=== PATIENT | male | born 1990 | race Caucasian/White ===

== ENCOUNTER → 2019-01-28 | Outpatient (CLI) | payer OTHER ==
[~2019-01-28] MED LIST: ALLERCLEAR10 MG PO; AMBIEN 5 MG TABL5 MG PO; CELEXA 10 MG TA10 M1 PO; CLONAZEPAM 0.50.5 M1 PO; CLONIDINE0.1 PO; DESYREL50 MG PO; HYDROCODONE-AC120 ML PO; RISPERDAL0.5 MG PO
--- NOTE | 2019-01-28 16:30 | 2DMMODE ---
[facility] [place] [address] 2 D/M-MODE ECHOCARDIOGRAM Name: ELY MANN Room #: REG [facility]#: [id number] ������������� Admission: 01/28/19 ������������� Attend Phys: Alexis Russ MD Discharge: ��� ������������� ��� Date of : 89 Date of Service: 01/28/19 1630 �� Report #: [id number] �������� ��������������������������������������������[id number] THIS REPORT FOR: //name// APPROVED REPORT Study performed: 01/28/2019 15:43:59 EXAM: Comprehensive 2D, Doppler, and color-flow Echocardiogram Patient Location: Out-Patient Status: add-on 3:45 BSA: 1.66 HR: 83 bpm Rhythm: NSR Other Information Study Quality: Technically Difficult. Highly uncooperative and combative patient. Limited measurements taken. Indications Mitral regurgitation. 2D Dimensions IVSd: 9.10 (7-11mm) LVOT Diam: 23.29 (18-24mm) LVDd: 38.39 mm PWd: 8.43 (7-11mm) LVDs: 26.33 (25-40mm) Aortic Root: 32.33 mm Aortic Valve AoV Peak Yanick.: 1.84 m/s AO Peak Gr.: 13.61 mmHg Mitral Valve E/A Ratio: 1.3 MV Decel. Time: 111.67 ms MV E Max Yanick.: 1.30 m/s MV A Yanick.: 1.01 m/s MV PHT: 32.39 ms Tricuspid Valve RAP Estimate: 5.00 mmHg Left Ventricle [facility] [address] [place] [address] 2 D/M-MODE ECHOCARDIOGRAM Name: TORYJulissaELY Mario Room #: REG [facility].#: [id number] ������������� Admission: 01/28/19 ������������� Attend Phys: Alexis Russ MD Discharge: ��� ������������� ��� Date of : 89 Date of Service: 01/28/19 1630 �� Report #: [id number] �������� ��������������������������������������������[id number] The left ventricle is normal size. There is normal LV segmental wall motion. There is normal left ventricular wall thickness. The left ventricular systolic function is normal. LVEF is 60%. Right Ventricle The right ventricle is normal size. The right ventricular systolic function is normal. Atria The left atrium size is normal. The right atrium size is normal. Aortic Valve No aortic regurgitation is present. There is no aortic valvular stenosis. Mitral Valve The mitral valve is normal in structure. Trace mitral regurgitation. No evidence of mitral valve stenosis. Tricuspid Valve The tricuspid valve is normal in structure. There is no tricuspid valve regurgitation noted. Unable to assess PA pressure. Pulmonic Valve The pulmonary valve is normal in structure. Trace pulmonic regurgitation. Great Vessels The aortic root is normal in size. IVC is normal in size and collapses >50% with inspiration. Pericardium Small pericardial effusion noted. <Conclusion> The left ventricle is normal size. There is normal left ventricular wall thickness. The left ventricular systolic function is normal. The right ventricle is normal size. The left atrium size is normal. The right atrium size is normal. There is no aortic valvular stenosis. Trace mitral regurgitation. [facility] [address] [place] [address] 2 D/M-MODE ECHOCARDIOGRAM Name: ELY MANN Room #: REG [facility]#: [id number] ������������� Admission: 01/28/19 ������������� Attend Phys: Alexis Russ MD Discharge: ��� ������������� ��� Date of : 89 Date of Service: 01/28/191629 �� Report #: [id number] �������� ��������������������������������������������[id number] There is no tricuspid valve regurgitation noted. Small pericardial effusion noted. ��������������������������������������������� <ELECTRONICALLY SIGNED> ���������������������������������������� By: Alexis Russ MD ��������������������������������������������� 01/28/191629 29 29 Alexis Russ MD /INF
== END ==
LOC: CV 15:24
DX: I34.0 Nonrheumatic mitral (valve) insufficiency (principal)

== ENCOUNTER 2019-02-05 09:37 | Emergency (ER) | payer OTHER ==
[~2019-02-05] VITALS: Ht 139.7 cm; Wt 76.7 kg
[~2019-02-05 09:37] MED LIST changes: -DESYREL50 MG PO; +TRAZODONE HCL100 MG PO
[2019-02-05 09:45] VITALS: BP 118/66
[2019-02-05] MEDS ORDERED: PREDNISONE 20 M20 MG PO (10:15)
== END 2019-02-05 10:26 | disposition home or self-care (01) ==
LOC: ER 09:37
DX: L30.9 Dermatitis, unspecified (principal); M41.9 Scoliosis, unspecified

== ENCOUNTER 2019-09-29 04:59 | Inpatient (IN) | payer OTHER ==
[~2019-09-29] VITALS: Ht 152.4 cm; Wt 83.0 kg
[~2019-09-29 04:59] MED LIST changes: +PREDNISONE 20 M20 MG PO
[2019-09-29 05:00] VITALS: BP 108/58
[2019-09-29] MEDS ORDERED: LEVO-T75 MCG PO (05:05)
[2019-09-29 07:31] LABS: BASOPHILS 0.1 % (0.0-2.0); EOSINOPHILS 0.2 % (0.0-3.0); HEMATOCRIT 47.5 % (42.0-52.0); HEMOGLOBIN 16.1 gm/dL (14.0-18.0); MCH 32.7 pg (26.0-34.0); MCHC 33.9 g/dL (28.0-37.0); MCV 96.5 fL (80.0-100.0); MONOCYTES 8.1 % (1.0-8.0); PLATELET COUNT 292 thou/uL (150-400); POLYS 88.6 % (36.0-66.0); RBC 4.93 mil/uL (4.50-6.00); WBC 15.8 thou/uL (4.0-11.0)
[2019-09-29 07:44] LABS: CALCIUM 9.3 mg/dL (8.5-10.1); CREATININE 1.1 mg/dL (0.7-1.3); POTASSIUM 4.2 mmol/L (3.5-5.1)
[2019-09-29 07:51] LABS: TOTAL BILIRUBIN 0.6 mg/dL (<0.1-1.0); TOTAL PROTEIN 8.4 g/dL (6.4-8.2)
[2019-09-29 10:20] LABS: URINE BILIRUBIN NEGATIVE (Negative); URINE BLOOD NEGATIVE (Negative); URINE CLARITY CLEAR; URINE COLOR YELLOW; URINE GLUCOSE-RANDOM* NEGATIVE (Negative); URINE KETONES NEGATIVE (Negative); URINE LEUKOCYTES-REFLEX NEGATIVE (Negative); URINE NITRITE-REFLEX NEGATIVE (Negative); URINE PROTEIN (DIPSTICK) NEGATIVE (Negative); URINE SPECIFIC GRAVITY <= 1.005 (1.005-1.035); URINE UROBILINOGEN 0.2 E.U./dl (0.2-1.0)
[2019-09-29] MEDS ORDERED: LEVO-T100 MCG PO (14:19)
[2019-09-29 16:08] VITALS: BP 111/60
[2019-09-29 18:35] VITALS: BP 107/53
--- NOTE | 2019-09-29 19:38 | NUR ---
PATIENT ADMITTED FROM THE ER AT THIS TIME. HE IS ALERT OREINTED TO SELF. DOES NOT SEEM TO BE IN PAIN AT THIS TIME. HE IS QUITE AGITATIVE. FIGITTING, HOLDING BEDRAILS, SCREAMING AND SOMETIMES YELLING. NOT EASILY REDIRECTED. HAD BM AND WAS CLEANED. STOOL COLLECTED AND SENT TO THE LAB.
[2019-09-29] MEDS ORDERED: AMBIEN 10 MG TA10 MG PO (22:53)
--- NOTE | 2019-09-30 03:30 | NUR ---
PT CARE ASSUMED WHEN ADMISION WAS GOING ON.NURSE COMPLETED ADMISION LEFT FROM DAY NURSE.PT WAS AGITATED.PT WENT TO THE REST ROOM AND DIDNOT WANT TO COME OUT.PT CHOOSE TO SIT ON THE FLOOR AND REFUSE TO GO TO THE BED.SECURITY WAS CALLED TWICE AND FATHER WAS CALLED .WHEN FATHER CAME HE SAID PT PREFERS TO IN CHAIR RATHER THAN SLEEP ON THE BED.PT WAS GIVEN HALDOL BUT FATHER SAID HALDOL CAUSES MORE AGITATION AND IT WAS D/C.PT AMBIEN OREDERED BY BHARATI SAWANT.PT LATER ON WHEN TO THE BED AND SLEPT.FOR FATHER TO SIGN CONCENTS .PT IS ON CONTACT PRECAUTION FOR CDIFF AND AWAITING RESULTS TO CONFIRM.CONTINUE POC
--- NOTE | 2019-09-30 15:19 | NUR ---
PT ADMITTED RELATED TO NAUSEA, VOMITING, DIARRHEA. CM REVIEWED CHART AND SPOKE WITH CARE TEAM. CM MET WITH PT AND FATHER/GUARDIAN AT BEDSIDE THIS DAY. 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 FATHER INDICATED THAT PT RESIDES IN A HOUSE WITH HIM AND HIS OTHER 40 YR OLD SON KENISHA ARCEO . FATHER INDICATED THAT PT THERE IS 1 STEP TO ENTER AND NO STEPS INSIDE. PT HAD BEEN INDEPENDENT WITH GAIT AND NEEDED ASSISTANCE WITH ALL ADLS AND IADLS. PT HAD SERVICES THROUGH MEDICAID 5 DAYS A WEEK THROUGH [address] [place] [address] HOME HEALTH AND GOES TO ADULT DAY SERVICES AT [facility] IN THE MORNING UNTIL 2:30 5 DAYS A WEEK. PT GOES TO A [facility] IN [facility] ON SUNDAYS FOR A SPECIAL NEEDS MINISTRY. FATHER INDICATED THAT PT WILL RETURN HOME ONCE MEICALLY STABLE. THEY ANTICPATE NO NEEDS. CM TO FOLLOW INDICATED WITH DC PLANNING.
--- NOTE | 2019-09-30 19:46 | NUR ---
ASSUMED PATIENT CARE AT 0715. PATIENT UP WALKING IN HALLS. TRIED TO REDIRECT PATIENT BACK TO HIS ROOM HOWEVER NOT SUCCESSFUL. SAT PATIENT OUT BY NURSES STATION. BACK TO ROOM WHEN FATHER RETURNED. INCONTINENT OF BOWELL AND BLADDER. PERICARE GIVEN. PATIENT PULLED IV OUT X 2. NOTIFIED DR. BARTLETT AND RECEIVED ORDERS TO LEAVE IV OUT. NEW ORDERS PLACED FOR PO FLAGYL AND CIPRO. PATIENT ADVANCED TO REGULAR DIET AND TOLERATING WELL. NO DIARRHEA TODAY.
--- NOTE | 2019-10-01 01:30 | NUR ---
PT CARE ASSUMED WITH PT IN BED.PT LATER GOT UP AND MOVED ROUND HIS ROOM AND OUT TO ANOTHER PT ROOM.PT WAS REORIENTED AND PT DOESNOT LISTEN TO COMMAND.PT USED THE RESTROOM X3.PT HAD BED MEDICATION AND WENT TO BED .PT IS ON ORAL MEDICATIONS HE PULLS OUT IV ACCESS.PT PUTS OON BRIEF.PT IS ON ISOLATION PRECAUTION FOR CDIFF.CONTINUE POC TILL EOS
[2019-10-01] MEDS ORDERED: OLANZAPINE ODT5 MG PO (07:53)
[2019-10-01 08:50] VITALS: BP 142/70
[2019-10-01] MEDS ORDERED: CIPRO250 M1 PO (12:00)
[2019-10-01] MEDS ORDERED: METRONIDAZOLE500 M4 PO (12:01)
[2019-10-01 12:05] VITALS: BP 142/70
--- NOTE | 2019-10-01 12:33 | NUR ---
CARE TEAM INDICATED THAT PT IS MEDICALLY STABLE TO DISCAHRGE HOME THIS DAY. PT'S FATHER INDICATED THEY DIDN'T WANT HOME HEALTH AND THAT PT DIDN'T NEEDS ANY DME. PT TO RESUME ADULT DAY SERVICES, [facility] [place]. PT'S FATHER TO PROVIDE TRANSPORT HOME THIS DAY. NO OTHER CM INTERVENTION INDICATED. CASE CLOSED.
--- NOTE | 2019-10-01 21:15 | NUR ---
DISCHARGE INSTRUCTIONS REVIEWED WITH PATIENT GUARDIAN-FATHER AT BEDSIDE-RX [id number] MEDICATIONS DOSES AND TIMES REVIWED WELL F/U RECOMMENDATIONS -FATHER DENIES QUESTIONS AND STATES UNDERSTANDING-PT LEFT UNIT ACCOMPNIED BY THIS RN VIA WC-TO FATHER PRIVATE VEHICLE-ALERT AND IN NO APPARENT DISTRESS AT TIME OF DC
== END 2019-10-01 13:10 | disposition home or self-care (01) | DRG 872 ==
LOC: ER 04:59 → 4W 10:51 → EROBS 10:51 → 4W 18:36
PROVIDERS: Emergency Medicine; ADMIT Hospitalist
DX: A41.9 Sepsis, unspecified organism (principal); F84.0 Autistic disorder; K52.9 Noninfective gastroenteritis and colitis, unspecified; I10 Essential (primary) hypertension; E89.0 Postprocedural hypothyroidism; E86.0 Dehydration; R00.0 Tachycardia, unspecified; Q90.9 Down syndrome, unspecified; Z98.1 Arthrodesis status; Z79.899 Other long term (current) drug therapy; Z79.891 Long term (current) use of opiate analgesic
CPT/HCPCS: 10040

== ENCOUNTER 2020-02-16 19:10 | Emergency (ER) | payer OTHER ==
[~2020-02-16] VITALS: Ht 137.2 cm; Wt 77.6 kg
[~2020-02-16 19:10] MED LIST changes: +AMBIEN 10 MG TA10 MG PO; +CIPRO250 M1 PO; +LEVO-T100 MCG PO; +LEVO-T75 MCG PO; +METRONIDAZOLE500 M4 PO; +OLANZAPINE ODT5 MG PO
[2020-02-16 19:52] LABS: URINE BILIRUBIN NEGATIVE (Negative); URINE BLOOD 3+ (Negative); URINE CLARITY CLOUDY; URINE COLOR RED; URINE GLUCOSE-RANDOM* NEGATIVE (Negative); URINE KETONES NEGATIVE (Negative); URINE LEUKOCYTES-REFLEX NEGATIVE (Negative); URINE NITRITE-REFLEX NEGATIVE (Negative); URINE PROTEIN (DIPSTICK) 3+ (Negative); URINE SPECIFIC GRAVITY 1.025 (1.005-1.035); URINE UROBILINOGEN 0.2 E.U./dl (0.2-1.0)
[2020-02-16 19:55] LABS: URINE RBC >20 Many /HPF (0-2)
[2020-02-16 19:56] LABS: SQUAMOUS 0-3 Few /LPF (0-3)
[2020-02-16 19:58] LABS: BACTERIA-REFLEX 1-9 Few /HPF (None Seen); CASTS None Seen /LPF (None Seen); CRYSTALS None Seen /LPF (None Seen); URINE WBC-REFLEX 0-5 Rare /HPF (0-5)
[2020-02-16 20:52] LABS: ABSOLUTE NEUTROPHILS 4.9 thou/uL (1.4-8.2); BASOPHILS 0.9 % (0.0-2.0); EOSINOPHILS 1.8 % (0.0-3.0); HEMATOCRIT 42.4 % (42.0-52.0); HEMOGLOBIN 14.7 gm/dL (14.0-18.0); LYMPHOCYTES 26.2 % (24.0-44.0); MCH 33.5 pg (26.0-34.0); MCHC 34.6 g/dL (28.0-37.0); MCV 96.8 fL (80.0-100.0); MONOCYTES 8.6 % (1.0-8.0); PLATELET COUNT 352 thou/uL (150-400); POLYS 62.5 % (36.0-66.0); RBC 4.38 mil/uL (4.50-6.00); RDW 15.7 % (10.5-14.5); WBC 7.9 thou/uL (4.0-11.0)
[2020-02-16 20:58] LABS: CALCIUM 8.2 mg/dL (8.5-10.1); CREATININE 1.1 mg/dL (0.7-1.3); POTASSIUM 4.3 mmol/L (3.5-5.1)
[2020-02-16 21:05] LABS: ALBUMIN 3.3 g/dL (3.4-5.0); TOTAL BILIRUBIN 0.1 mg/dL (<0.1-1.0); TOTAL PROTEIN 8.6 g/dL (6.4-8.2)
[2020-02-16] MEDS ORDERED: MACROBID 100 M100 MG PO ×2 (22:02→22:35)
[2020-02-16] MEDS ORDERED: PHENAZOPYRIDIN200 M2 PO ×2 (22:03→22:35)
[2020-02-16 22:52] VITALS: BP 132/68
== END 2020-02-16 22:45 | disposition home or self-care (01) ==
LOC: ER 19:10
PROVIDERS: Nurse Practitioner Family
DX: N30.91 Cystitis, unspecified with hematuria (principal); Z79.899 Other long term (current) drug therapy; Z88.6 Allergy status to analgesic agent